=== PATIENT | female | born 2005 | race Two or more races ===

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

== ENCOUNTER 2024-07-04 15:02 | Inpatient (IN) | payer MEDICAID ==
[~2024-07-04] VITALS: Ht 147.3 cm; Wt 53.1 kg
[2024-07-04] MEDS ORDERED: LIDOCAINE 2%HCL (LOCAL ANESTH.) INJ 20ML MDV IJ PRN (15:15)
[2024-07-04] MEDS ORDERED: BUTORPHANOL TARTRATE 2 MG/1 ML VIAL IV PRN ×2 (15:15)
[2024-07-04] MEDS ORDERED: NALBUPHINE HCL 10 MG/1ml INJECTION IV PRN (15:15)
[2024-07-04] MEDS: NALOXONE HCL 0.4 MG/ML VIAL IV ONE (16:00)
[2024-07-04] MEDS: ePHEDrine SULFATE 50 MG/ML AMP IV ONE (16:00)
[2024-07-04 16:03] LABS: Basophils # (auto) 0 10 ^3/uL (0-0.2); Basophils % (auto) 0.3 % (0.0-2.0); Eosinophils # (auto) 0.2 10 ^3/uL (0-0.8); Eosinophils % (auto) 1.3 % (0.0-7.0); Hematocrit 40.9 % (36.0-46.0); Hemoglobin 14.5 g/dL (12.2-16.2); Lymphocytes # (auto) 2.2 10 ^3/uL (0.4-5.4); Lymphocytes % (auto) 15.9 % (10.0-50.0); Mean Corpuscular Hemoglobin 34.5 pg (28.0-32.0); Mean Corpuscular Hgb Conc. 35.4 g/dL (32.0-36.0); Mean Corpuscular Volume 97.4 fL (80.0-100.0); Monocytes % (auto) 7.1 % (0.0-12.0); Neutrophils # (auto) 10.6 10 ^3/uL (1.6-8.6); Neutrophils % (auto) 75.4 % (37.0-80.0); Nucleated Red Blood Cells % 0.1 %; Platelet Count (auto) 261 10^3/uL (140-450); White Blood Cell 14.1 10^3/uL (4.4-10.8)
[2024-07-04 16:09] LABS: Alanine Aminotransferase 16 U/L (7-40); Albumin 4.3 g/dL (3.2-4.8); Alkaline Phosphatase 228 U/L (46-116); Anion Gap 11 (5-15); Aspartate Aminotransferase 23 U/L (13-40); Blood Urea Nitrogen 5 mg/dL (9-23); Calcium 9.8 mg/dL (8.7-10.4); Carbon Dioxide 19 mmol/L (20-31); Chloride 107 mmol/L (98-107); Glucose 87 mg/dL (74-106); Potassium 3.4 mmol/L (3.5-5.1); Sodium 137 mmol/L (136-145)
[2024-07-04 16:10] LABS: Bilirubin, Total 0.4 mg/dL (0.2-1.0); Total Protein 6.8 g/dL (5.7-8.2)
[2024-07-04] MEDS: fentaNYL CITRATE 100 MCG/2 ML VL ONE (16:18)
[2024-07-04 17:02] LABS: Urine Bacteria None Seen /hpf (None Seen)
[2024-07-04] MEDS: ROPIVACAINE HCL 200 ML ONE (17:05)
[2024-07-04] MEDS: LACTATED RINGER'S 1,000 ML IV SCH (17:06)
[2024-07-04] MEDS: WITCH HAZEL-GLYCERIN PAD TOP PRN (17:06)
[2024-07-04] MEDS: PHISODERM TOP SOLN 240ML BTL TOP PRN (17:06)
[2024-07-04] MEDS: DERMOPLAST 60ML BOTTLE TOP PRN (17:06)
[2024-07-04 17:35] LABS: Urine Blood Negative /uL (Negative); Urine Clarity Clear (Clear); Urine Color Yellow (Yellow); Urine Hyaline Cast FEW /lpf (0 - 2); Urine Mucus FEW (None Seen); Urine Protein, UAD TRACE (Negative); Urine Specific Gravity 1.022 (1.001-1.035); Urine Urobilinogen Normal (Negative); Urine WBC 1 /hpf (0 - 5); Urine pH 7.5 (5.0-9.0)
[2024-07-04 17:41] LABS: Amphetamine Screen, Urine Neg (NEGATIVE); Barbiturate Scree,Urine Neg (NEGATIVE); Benzodiazephine Screen, Urine Neg (NEGATIVE); Cocaine Screen, Urine Neg (NEGATIVE); Opiate Scree,Urine Neg (NEGATIVE); Phencyclidine Screen, Urine Neg (NEGATIVE)
[2024-07-04 17:42] LABS: Cannabinoid Screen, Urine Neg (NEGATIVE)
[2024-07-04 17:47] LABS: INR 0.93 (0.9-1.15); Partial Thromboplastin Time 26.4 SEC (24.5-34.5); Prothrombin Time 9.9 sec (9.3-11.8)
[2024-07-04] MEDS: fentaNYL CITRATE 100 MCG/2 ML VL IV ONE (18:15)
[2024-07-04] MEDS: LACT. RINGERS/OXYTOCIN 20UNITS 500 ML IV ONE (19:08)
[2024-07-04] MEDS: POTASSIUM CHL 20 Meq TABLET PO SCH (22:18)
[2024-07-04 23:22] VITALS: BP 110/69; PULSE 78; RESP 16; TEMP 98; O2SAT 99
[2024-07-05] MEDS ORDERED: ONDANSETRON HCL 4 MG/2 ML VIAL IV PRN (00:45)
[2024-07-05] MEDS ORDERED: ACETAMINOPHEN 325 MG TAB PO PRN (00:45)
[2024-07-05] MEDS: LACT. RINGERS/OXYTOCIN 20UNITS 500 ML IV ONE (00:50)
[2024-07-05] MEDS: IBUPROFEN 800 MG TAB PO SCH (00:55)
[2024-07-05] MEDS ORDERED: DOCUSATE CALCIUM 240 MG CAP PO ONE (02:30)
[2024-07-05 03:00] VITALS: BP 110/63; PULSE 83; RESP 16; TEMP 98.7; O2SAT 100
[2024-07-05] MEDS: DOCUSATE SOD 100 MG CAP PO ONE (03:00)
[2024-07-05 06:45] VITALS: BP 109/69; PULSE 83; RESP 18; TEMP 99.2; O2SAT 99
[2024-07-05 07:06] LABS: RPR Non Reactive (Non Reactive); Rubella Antibodies, IgG 2.98 index (Immune >0.99)
[2024-07-05] MEDS ORDERED: IBUP-1455 PO (09:54)
[2024-07-05 11:00] VITALS: BP 121/64; PULSE 90; RESP 18; TEMP 98.7; O2SAT 97
[2024-07-05] MEDS: DOCUSATE SOD 100 MG CAP PO PRN (14:45)
[2024-07-05] MEDS: IBUPROFEN 800 MG TAB PO PRN (14:46)
[2024-07-05 15:30] VITALS: BP 103/59; PULSE 98; RESP 16; TEMP 98.9; O2SAT 97
[2024-07-05 19:00] VITALS: BP 102/60; PULSE 102; RESP 14; TEMP 98.2; O2SAT 100
[2024-07-05] MEDS: TETANUS-DIPTH-ACEL PERTUSSIS 0.5ML SYR Tdap IM ONE (20:03)
[2024-07-05 20:47] VITALS: BP 102/60; PULSE 102; RESP 14; TEMP 98.2; O2SAT 97
[2024-07-05] MEDS ORDERED: DOCUSATE SOD 100 MG CAP PO SCH (22:00)
== END 2024-07-05 20:47 | disposition home or self-care (01) | DRG 560 ==
LOC: OBSVTOIN 15:02 → LDRP 15:02
PROVIDERS: ADMIT Obstetrics & Gynecology; ATTEND Obstetrics & Gynecology
PROC: 10D07Z6 Extraction of Products of Conception, Vacuum, Via Natural or Artificial Opening (ICD-10-PCS; principal; 2024-07-04)
PROC: 0W8NXZZ Division of Female Perineum, External Approach (ICD-10-PCS; 2024-07-04)
PROC: 3E0R3BZ Introduction of Anesthetic Agent into Spinal Canal, Percutaneous Approach (ICD-10-PCS; 2024-07-04)
PROC: 00HU33Z Insertion of Infusion Device into Spinal Canal, Percutaneous Approach (ICD-10-PCS; 2024-07-04)
DX: O69.1XX0 Labor and delivery complicated by cord around neck, with compression, not applicable or unspecified (principal); Z37.0 Single live birth; O76 Abnormality in fetal heart rate and rhythm complicating labor and delivery; Z3A.37 37 weeks gestation of pregnancy
CPT/HCPCS: 36415; 59409; 62282; 80053; 80307; 81001; 85025; 85610; 85730; 86592; 86703; 86762; 86803; 86850; 86900; 86901; 87340; 90715; 94760; 94762; 96360; 96361; 96365; 96366; G0378; J2590